=== PATIENT | female | born 1935 | race Caucasian/White ===

== ENCOUNTER 2017-06-30 12:01 | Emergency (ER) | END 2017-06-30 14:11 | disposition home or self-care (01) ==

== ENCOUNTER 2018-11-27 14:47 | Inpatient (IN) | payer OTHER ==
[~2018-11-27] VITALS: Ht 157.5 cm; Wt 69.6 kg
[~2018-11-27 14:47] MED LIST: ALEN70TA5 PO; AMLO-147 PO; AMLO1CAP12 PO; ASPI-1044 PO; ATEN50TA PO; ATOR-2 PO; ATOR40TA68 PO; CALC1TAB98 PO; CHOL200056 PO; FURO40TA4 PO; GABA100C14 PO; GLIP-160 PO; LISI1TAB6 PO; METF-849 PO; TRAM50TA2 PO
--- NOTE | 2018-11-27 16:36 | ERD ---
ER Documentation Chief Complaint Chief Complaint ALOC since 11 am with speech difficulties HPI Patient history of 3 strokes. At 11:30 AM patient had some difficulty speaking. Correct words but definitely getting the words out. Was brought to [facility] department for concern for stroke. Prior to this no head trauma no infectious symptoms was at baseline. No permanent disability secondary to prior strokes. Has been compliant with medications. At this time patient feels better than at 1130 but still having trouble speaking. ROS All systems reviewed and are negative except as per history of present illness. Medications Home Meds Reported Medications Amlodipine Besylate/Benazepril (Amlodipine-Benazepril 10-20 mg) 1 Each Capsule, 1 EACH PO DAILY, CAP 11/27/18 Cholecalciferol (Vitamin D3) (Vitamin D-3) 2,000 Unit Tablet, 2000 UNIT PO DAILY, TAB 11/27/18 Alendronate Sodium* (Fosamax*) 70 Mg Tablet, 70 MG PO Q7D, #4 TAB 11/27/18 Calcium Carbonate/Vitamin D3 (Calcium 600 + Vit D 200 Tablet) 1 Each Tablet, 1 EACH PO DAILY, TAB 11/27/18 Atenolol* (Atenolol*) 50 Mg Tablet, 50 MG PO DAILY, #30 TAB 11/27/18 Gabapentin* (Gabapentin*) 100 Mg Capsule, 100 MG PO BID, #90 CAP 11/27/18 Furosemide* (Furosemide*) 40 Mg Tablet, 40 MG PO BID, TAB 11/27/18 Atorvastatin* (Atorvastatin*) 40 Mg Tablet, 40 MG PO QHS, #30 TAB 11/27/18 Discontinued Reported Medications Gabapentin* (Gabapentin*) 100 Mg Capsule, 100 MG PO TID, #90 CAP 06/30/17 Amlodipine Besylate* (Amlodipine Besylate*) 10 Mg Tablet, 10 MG PO DAILY, #30 TAB 06/30/17 Metformin* (Glucophage*) 500 Mg Tab, 500 MG PO WITH MEALS, #90 TAB 06/30/17 Atenolol* (Atenolol*) 50 Mg Tablet, 50 MG PO DAILY, #30 TAB 06/30/17 Glipizide XL* (Glipizide XL*) 5 Mg Tabsr, 5 MG PO DAILY, TAB 06/30/17 Lisinopril/Hydrochlorothiazide (Lisinopril-Hctz 20-12.5 mg Tab) 1 Each Tablet, 1 EACH PO DAILY, TAB 06/30/17 Atorvastatin* (Atorvastatin*) 40 Mg Tablet, 40 MG PO QHS, #30 TAB 06/30/17 Discontinued Scripts Tramadol HCl (Tramadol HCl) 50 Mg Tablet, 50 MG PO Q6 PRN for PAIN, #20 TAB Prov:JULEE GARCIA MD 06/30/17 Allergies Allergies: Coded Allergies: No Known Allergy (Unverified , 11/27/18) PMhx/Soc History of Surgery: No Anesthesia Reaction: No Hx Neurological Disorder: Yes (CVA X3 ) Hx Respiratory Disorders: No Hx Cardiac Disorders: Yes (HTN) Hx Psychiatric Problems: No Hx Miscellaneous Medical Probl: No Hx Alcohol Use: No Hx Substance Use: No Hx Tobacco Use: No Smoking Status: Never smoker Physical Exam Vitals Vital Signs Date Temp Pulse Resp B/P (MAP) Pulse Ox O2 O2 Flow FiO2 Time Delivery Rate 11/27/18 Nasal 2 15:39 Cannula 11/27/18 98.2 82 18 135/63 93 15:11 (87) Physical Exam Const: No acute distress Head: Atraumatic Eyes: Normal Conjunctiva ENT: Normal External Ears, Nose and Mouth. Neck: Full range of motion. No meningismus. Resp: Clear to auscultation bilaterally Cardio: Regular rate and rhythm, no murmurs Abd: Soft, non tender, non distended. Normal bowel sounds Skin: No petechiae or rashes Back: No midline or flank tenderness Ext: No cyanosis, or edema Neur: Neuro Exam Mental status: oriented, alert, lucid, cooperative, appropriate Cranial nerves: CN 2-12 intact Motor: 5+ UE and LE, flexors and extensors symmetric Sensation: grossly intact to find touch UE and LE symmetrically Cerebellar: normal FTN bilaterally. No tremor noted Gait: normal gait Tone: normal bulk and tone in upper and lower extremities. No atrophy noted. Psych: Normal Mood and Affect Result Diagram: 11/27/18 1450 11/27/18 1450 Results 24 hrs Laboratory Tests Test 11/27/18 14:50 11/27/18 15:02 White Blood Count 9.6 10^3/ul Red Blood Count 4.81 10^6/ul Hemoglobin 10.5 g/dl Hematocrit 35.9 % Mean Corpuscular Volume 74.6 fl Mean Corpuscular Hemoglobin 21.8 pg Mean Corpuscular Hemoglobin Concent 29.2 g/dl Red Cell Distribution Width 17.2 % Platelet Count 261 10^3/UL Mean Platelet Volume 10.5 fl Immature Granulocytes % 0.400 % Neutrophils % 67.9 % Lymphocytes % 21.2 % Monocytes % 8.3 % Eosinophils % 1.7 % Basophils % 0.5 % Nucleated Red Blood Cells % 0.0 /100WBC Immature Granulocytes # 0.040 10^3/ul Neutrophils # 6.5 10^3/ul Lymphocytes # 2.0 10^3/ul Monocytes # 0.8 10^3/ul Eosinophils # 0.2 10^3/ul Basophils # 0.1 10^3/ul Nucleated Red Blood Cells # 0.0 10^3/ul Prothrombin Time 12.3 Sec Prothrombin Time Ratio 1.0 INR International Normalized Ratio 0.90 Activated Partial Thromboplast Time 33.1 Sec Sodium Level 142 mmol/L Potassium Level 3.7 mmol/L Chloride Level 106 mmol/L Carbon Dioxide Level 29 mmol/L Anion Gap 7 Blood Urea Nitrogen 13 mg/dl Creatinine 0.77 mg/dl Est Glomerular Filtrat Rate mL/min mL/min Glucose Level 173 mg/dl Hemoglobin A1c 7.1 % Calcium Level 9.3 mg/dl Creatine Kinase 198 IU/L Creatine Kinase Index 0.5 Creatinine Kinase MB (Mass) 1.02 ng/ml Troponin I < 0.012 ng/ml Triglycerides Level 150 mg/dl Cholesterol Level 142 mg/dl LDL Cholesterol, Calculated 65 mg/dl HDL Cholesterol 47 mg/dl Cholesterol/HDL Ratio 3.0 RATIO Ethyl Alcohol Level < 10.0 mg/dl Bedside Glucose 156 mg/dL Procedures/MDM Patient was brought in for a aphasia code stroke was activated CT brain was negative vitals were unremarkable. Neurologist evaluated through tele-stroke patient is not a candidate for TPA. Aspirin and Plavix will be given and patient will be admitted. Low suspicion for infection, ACS at this time. Patient is awake alert oriented. JULEE LIEBERMAN MD Nov 27, 2018 16:36
[2018-11-27] MEDS ORDERED: ACETAMINOPHEN 325 MG TAB PO PRN ×2 (17:00→17:30)
[2018-11-27] MEDS ORDERED: CLOPIDOGREL 75 MG TAB PO ONE (17:00)
[2018-11-27] MEDS ORDERED: ONDANSETRON 4 MG INJ IV PRN ×2 (17:00→17:30)
[2018-11-27] MEDS ORDERED: ASPIRIN 325 MG TAB PO ONE (17:00)
--- NOTE | 2018-11-27 17:03 | STROKE ---
Date/Time of Note Date/Time of Note DATE: 11/27/18 TIME: 17:01 Patient Information General Patient location: emergency Arrival Date Age 83 Gender female Weight 71.2 kg POC Glucose Glucose Result Bedside Glucose - 72 Hours Test 11/27/18 15:02 Bedside Glucose 156 mg/dL (70-220) Vital Signs Vital Signs Vital Signs Date Temp Pulse Resp B/P (MAP) Pulse Ox O2 O2 Flow FiO2 Time Delivery Rate 11/27/18 Nasal 2 15:39 Cannula 11/27/18 98.2 82 18 135/63 93 15:11 (87) Patient History Current Medications Allergies: Coded Allergies: No Known Allergy (Unverified , 11/27/18) Labs Coagulation Labs: Coagulation Test 11/27/18 14:50 Activated Partial Thromboplast Time 33.1 Sec (23.0-35.0) History & Physical History of Present Illness 83 M PMH DM, stroke without residual deficits LKW 1130 PST with difficulty speaking. NCHCT negative for acute pathology. NIH Stroke Scale NIH Stroke Scale [id number] te aphasia [id number] Total Score: [id number] Date/Time Recorded DATE: 11/27/18 TIME: 16:37 Submitted By Ken Johansen t-PA Imaging Review Date/Time Imaging Reviewed DATE: 11/27/18 TIME: 17:01 t-PA Administration Recommendation: No Weight 71.2 kg Recommedation submitted by Ken Johansen Reason t-PA not Recommended Not in time window Recommendations Recommendation 83 F with occasional word finding difficulty concerning for aphasia concerning for stroke. Not in tPA window. Not evidence-based mechanical thrombectomy candidate due to low NIHSS of 1 - Admission for initial stroke studies: MRI Brain, MRA Head/Neck, TTE with bubble, blood cultures, telemetry, EKG, LDL, A1c, SP, PT, OT. Further testing per these initial results/evaluations. - Perform bedside swallow testing in ED and load with ASA 325 mg PO and Plavix 600 mg PO if passes and not already on these agents at home. Would continue ASA at 81 mg PO QD and Plavix at 75 mg PO QD starting tomorrow. Duration of dual- antiplatelet therapy per local Neurology team, but maximum benefit is seen in first 7 days per POINT trial in patients without intracranial atherosclerotic disease - q 1 hr neuro checks over next 24 hrs - Strict euvolemia, normonatremia, normothermia, normoglycemia - Permissive SBP to 185 for first 24 hours during stroke work-up - Please consult local Neurologist to guide further recs I, Dr Ken Johansen, was consulted by the local team caring for this patient to perform an expert, remote TeleNeurology assessment as a merchandising consultant only. Accuracy of the Electronic Medical Record info reported to me verbally by the local clinical team, adherence to and execution of my recommendations, order placement, follow-up of STAT imaging reports with on-call local Radiologist, and renotification of [facility] Emergency TeleNeurology on-call if clinical deterioration of the patient is the responsibility of the local team. The local physician team is responsible for the further care of this patient in coordination with their on-call local Neurologist. Recommendations documented here were directly communicated to the local physician team. KEN JOHANSEN MD Nov 27, 2018 17:03
[2018-11-27] MEDS ORDERED: NACL 0.9% 3 ML SYG IV SCH (17:30)
--- NOTE | 2018-11-27 18:01 | HP ---
Date/Time of Note Date/Time of Note DATE: 11/27/18 TIME: 17:43 Assessment/Plan VTE Prophylaxis SCD applied (from Nsg): Yes Pharmacological prophylaxis: NA/contraindicated Pharm contraindication: low risk/ambulating Lines/Catheters IV Catheter Type (from Nrsg): Saline Lock Assessment/Plan Assessment/Plan 83 yo woman with history of multiple strokes presents with word finding difficulty. #Aphasia - The patient does have considerable word-finding difficulty on my exam consistent with a left temporal lesion. According to the this is new. - Also with some difficulty following multi step commands. - Code stroke protocol: MRI brain and MRA head+neck, TTE, lipid panel, HgbA1C, EKG. - q1h neuro checks have been recommended by tele-neurology - I will consult Dr. Armenta also - Continue home statin #HTN - Continue home antihypertensives. DVT: SCDs GI: None Result Diagram: 11/27/18 1450 11/27/18 1450 HPI/ROS Admit Date/Time Admit Date/Time 27 November 2018 Hx of Present Illness Ms. Miramontes is an 83 yo Japanese-speaking woman with history of stroke who presents with sudden onset word-finding difficulty. She has had three strokes in the past, most recent was 4 years ago. She has no residual deficits. Around 11:30 this morning she was speaking to her when she suddenly had difficulty finding the right word. The was concerned about stroke and actually reached out to her primary care doctor, who recommended they go to the emergency room. Otherwise the patient does report about a week of productive cough. No other complaints. In the ED she was afebrile, P 82, R 18, BP 135/63. Labs notable for microcytic anemia with Hgb 10.5, otherwise unremarkable. Troponin was negative. Code stroke was called, see note by Dr. Johansen. No TPA ordered. ROS She denies recent fever, chills, night sweats, weight loss, dizziness, vision changes, dysphagia, sore throat, dyspnea, chest pain/pressure/palpitations, nausea, vomiting, abdominal pain, diarrhea, constipation, dysuria, hematuria, urinary frequency. PMH/Family/Social Past Medical History Stroke x3 in the past. Most recently 4 years ago. Medications Current Medications Ondansetron HCl (Zofran Inj) 4 mg ER BRIDGE PRN IV NAUSEA/VOMITING; Start 11/27/18 at 17:00; Stop 11/28/18 at 16:59 Acetaminophen (Tylenol Tab) 650 mg ER BRIDGE PRN PO .MILD PAIN 1-3 OR TEMP; Sta rt 11/27/18 at 17:00; Stop 11/28/18 at 16:59 IV Flush (NS 3 ml) 3 ml PER PROTOCOL IV ; Start 11/27/18 at 17:30; Status UNV Ondansetron HCl (Zofran Inj) 4 mg Q6H PRN IV NAUSEA/VOMITING; Start 11/27/18 at 17:30; Status UNV Acetaminophen (Tylenol Tab) 650 mg Q6H PRN PO .PAIN 1-3 OR TEMP; Start 11/27/18 at 17:30; Status UNV Coded Allergies: No Known Allergy (Unverified , 11/27/18) Past Surgical History Past Surgical Hx: no surgical history Social History Lives at home with Alcohol Use: none Smoking Status: Never smoker Drug Use: none Exam/Review of Systems Vital Signs Vitals Vital Signs Date Temp Pulse Resp B/P (MAP) Pulse Ox O2 O2 Flow FiO2 Time Delivery Rate 11/27/18 76 16 168/76 98 Nasal 2.0 17:04 (106) Cannula 11/27/18 98.2 15:11 Exam Exam Gen: Well appearing woman sitting up in gurney in no distress. NEURO: CN2-12 grossly intact with EOMI, PERRL, no facial droop, symmetrical smile. Also with 5/5 strength upper and lower extremity flexors and extensors; sensation to light touch in tact throughout. She does still have word finding difficulty. Can easily answer "yes" and "no" but struggles with words like "semana", and appears frustrated when she is unable to express herself. Also has difficulty with multi-step commands. Eyes: PERRL, no icterus HEENT: Moist mucous membranes, clear oropharynx Neck: Supple, no lymphadenopathy Card; Regular rate and rhythm, no murmurs Pulm: Clear to auscultation bilaterally. Abd: Soft, nontender, nondistended. No hepatosplenomegaly. Ext: No cyanosis/clubbing/edema. LD JOHANSEN MD Nov 27, 2018 17:55
[2018-11-27 19:33] VITALS: BP 182/72; PULSE 80; RESP 19
[2018-11-27 20:00] VITALS: Ht 157.5 cm; Wt 69.6 kg
[2018-11-27] MEDS: ATORVASTATIN 40 MG TAB PO SCH (20:23)
[2018-11-27] MEDS: GABAPENTIN 100 MG CAP PO SCH (20:23)
[2018-11-27] MEDS: FUROSEMIDE 40 MG TAB PO SCH (20:23)
[2018-11-27] MEDS ORDERED: GLUCOSE GEL 15 GRAM TUBE PO PRN ×2 (20:30)
[2018-11-27] MEDS ORDERED: GLUCAGON 1 MG INJ IM PRN (20:30)
[2018-11-27] MEDS ORDERED: DEXTROSE 50% 50 ML SYRINGE IV PRN ×2 (20:30)
[2018-11-27] MEDS ORDERED: GLUCOSE GEL 15 GRAM TUBE BUCCAL PRN (20:30)
[2018-11-27 22:39] VITALS: BP 131/62; PULSE 77; RESP 18
[2018-11-27] MEDS: INSULIN ASPART [NOVOLOG] 3 ML PEN SC SCH (22:44)
[2018-11-28] VITALS: BP 127/58; PULSE 70; RESP 19
[2018-11-28] MEDS: ACCU-CHEK XX SCH (02:00)
[2018-11-28 04:00] VITALS: BP 144/61; PULSE 54; RESP 19
[2018-11-28] MEDS: INSULIN ASPART [NOVOLOG] 3 ML PEN SC SCH ×4 (07:55→20:17)
[2018-11-28 07:56] VITALS: BP 150/68; PULSE 74; RESP 18
[2018-11-28] MEDS: CHOLECALCIFEROL 2,000 UNIT CAP PO SCH (08:08)
[2018-11-28] MEDS: AMLODIPINE 10 MG TAB PO SCH (08:09)
[2018-11-28] MEDS: BENAZEPRIL 20 MG TAB PO SCH (08:09)
[2018-11-28] MEDS: GABAPENTIN 100 MG CAP PO SCH ×2 (08:09→21:04)
[2018-11-28] MEDS: FUROSEMIDE 40 MG TAB PO SCH ×2 (08:10→21:04)
[2018-11-28] MEDS: ATENOLOL 50 MG TAB PO SCH (08:10)
[2018-11-28] MEDS ORDERED: NON-FORMULARY/PATIENT OWN MED (Amlodipine Besylate/Benazepril (Amlodipine-Benazepril 10-20 PO SCH (09:00)
[2018-11-28] MEDS ORDERED: NON-FORMULARY/PATIENT OWN MED (Cholecalciferol (Vitamin D3) (Vitamin D-3) 2,000 UNIT) PO SCH (09:00)
--- NOTE | 2018-11-28 09:43 | CONSI ---
Assessment/Plan Assessment/Plan Assessment/Plan (Recall) 83 F c/ cerebrovascular risk factors, including reported prior strokes...who presents for evaluation of transient dysphasia.. The clinical picture is most ominously concerning for recurrent stroke. Recrudescence is a Dx of exclusion.. Head CT is unrevealing. UA neg; UDS neg P: Await MRI brain for further characterization Start daily asa for secondary stroke prevention; LDL is at goal.. Glucose and other medical management per primary PT/OT/ST as necessary Will follow clinically to recommend additional neurologic studies as necessary Consultation Date/Type/Reason Admit Date/Time 27 November 2018 Type of Consult Neurology Reason for Consultation dysphasia Requesting Provider: LD TANNER MD Date/Time of Note DATE: 11/28/18 TIME: 09:38 Hx of Present Illness Ms. Miramontes is an 83 yo Swedish-speaking woman with history of stroke who presents with sudden onset word-finding difficulty. She has had three strokes in the past, most recent was 4 years ago. She has no residual deficits. Around 11:30 this morning she was speaking to her when she suddenly had difficulty finding the right word. The was concerned about stroke and actually reached out to her primary care doctor, who recommended they go to the emergency room. Otherwise the patient does report about a week of productive cough. No other complaints. In the ED she was afebrile, P 82, R 18, BP 135/63. Labs notable for microcytic anemia with Hgb 10.5, otherwise unremarkable. Troponin was negative. Code stroke was called, see note by Dr. Tanner. No TPA ordered. per HPI Objective Exam Vitals Vital Signs Date Temp Pulse Resp B/P (MAP) Pulse Ox O2 O2 Flow FiO2 Time Delivery Rate 11/28/18 98.7 74 18 150/68 98 Room Air 07:56 (95) 11/28/18 2.0 27 02:14 Intake and Output 11/27/18 11/27/18 11/28/18 1515:00 23:00 07:00 IntakeIntake Total 100 ml BalanceBalance 100 ml Exam PE: Gen Appearance: No Apparent Distress HEENT: Normocephalic Cardiovascular: Regular rate Lungs: Clear bilaterally Abdomen: Soft Extremities: Dry NE: The patient was alert and oriented. Language was normal. Fund of knowledge was normal. Pupils were equal and reactive to light. There was no afferent pupillary defect. Visual bauer were normal. Funduscopic examination was limited. Extra-ocular movements were full. Ptosis was absent. There was no nystagmus. Facial sensation was normal. Face was symmetric with normal strength. Hearing was intact. Palate movements were normal. Neck strength was normal. There was normal tongue bulk and speed of movement. Tone was normal. Muscle bulk was normal. I did not see fasciculations. Arms and legs were strong. Vibration sensation was normal. Temperature and pinprick sensation was normal. Rapid alternating movements were normal. There was no dysmetria. There was no intention tremor. Gait was deferred due to bedrest. Arm and leg reflexes were symmetric. Navarro's sign was absent. Plantar responses were flexor. Results Result Diagram: 11/28/1861811/28/18618 Results 24hrs Laboratory Tests Test 11/27/18 14:50 11/27/18 15:02 11/27/18 16:58 11/27/18 22:44 White Blood Count 9.6 Red Blood Count 4.81 Hemoglobin 10.5 L Hematocrit 35.9 L Mean Corpuscular 74.6 L Volume Mean Corpuscular 21.8 L Hemoglobin Mean Corpuscular 29.2 L Hemoglobin Concent Red Cell 17.2 H Distribution Width Platelet Count 261 Mean Platelet Volume 10.5 H Immature 0.400 Granulocytes % Neutrophils % 67.9 Lymphocytes % 21.2 Monocytes % 8.3 Eosinophils % 1.7 Basophils % 0.5 Nucleated Red Blood 0.0 Cells % Immature 0.040 H Granulocytes # Neutrophils # 6.5 Lymphocytes # 2.0 Monocytes # 0.8 Eosinophils # 0.2 Basophils # 0.1 Nucleated Red Blood 0.0 Cells # Prothrombin Time 12.3 Prothrombin Time 1.0 Ratio INR International 0.90 Normalized Ratio Activated 33.1 Partial Thromboplast Time Sodium Level 142 Potassium Level 3.7 Chloride Level 106 Carbon Dioxide Level 29 Anion Gap 7 Blood Urea Nitrogen 13 Creatinine 0.77 Est Glomerular Filtrat Rate mL/min Glucose Level 173 Hemoglobin A1c 7.1 H Calcium Level 9.3 Creatine Kinase 198 Creatine Kinase 0.5 Index Creatinine Kinase MB 1.02 (Mass) Troponin I < 0.012 Triglycerides Level 150 H Cholesterol Level 142 LDL Cholesterol, 65 Calculated HDL Cholesterol 47 Cholesterol/HDL 3.0 Ratio Ethyl Alcohol Level < 10.0 H Bedside Glucose 156 141 Urine Color YELLOW Urine Clarity CLEAR Urine pH 7.0 Urine Specific 1.012 Leroy Urine Ketones NEGATIVE Urine Nitrite NEGATIVE Urine Bilirubin NEGATIVE Urine Urobilinogen NEGATIVE Urine Leukocyte TRACE A Esterase Urine Microscopic 1 RBC Urine Microscopic 3 WBC Urine Hemoglobin NEGATIVE Urine Glucose NEGATIVE Urine Total Protein NEGATIVE Urine Opiates Screen Negative Urine Barbiturates Negative Urine Amphetamines Negative Screen Urine Negative Benzodiazepines Screen Urine Cocaine Screen Negative Urine Cannabinoids Negative Test 11/28/18 06:19 11/28/18 08:07 White Blood Count 7.9 Red Blood Count 4.83 Hemoglobin 10.6 L Hematocrit 36.0 L Mean Corpuscular 74.5 L Volume Mean Corpuscular 21.9 L Hemoglobin Mean Corpuscular 29.4 L Hemoglobin Concent Red Cell 17.2 H Distribution Width Platelet Count 252 Mean Platelet Volume 10.5 H Immature 0.400 Granulocytes % Neutrophils % 61.6 Lymphocytes % 24.5 Monocytes % 10.9 Eosinophils % 2.0 Basophils % 0.6 Nucleated Red Blood 0.0 Cells % Immature 0.030 Granulocytes # Neutrophils # 4.9 Lymphocytes # 1.9 Monocytes # 0.9 Eosinophils # 0.2 Basophils # 0.1 Nucleated Red Blood 0.0 Cells # Sodium Level 145 H Potassium Level 3.6 Chloride Level 104 Carbon Dioxide Level 32 H Anion Gap 9 Blood Urea Nitrogen 12 Creatinine 0.87 Est Glomerular Filtrat Rate mL/min Glucose Level 124 # Hemoglobin A1c 7.1 H Calcium Level 9.0 Phosphorus Level 4.0 Magnesium Level 1.6 L Iron Level 34 L Total Iron Binding 350 Capacity Percent Iron 10 L Saturation Ferritin 6.8 L Total Bilirubin 0.9 Direct Bilirubin 0.00 Indirect Bilirubin 0.9 Aspartate Amino 24 Transf (AST/SGOT) Alanine 12 L Aminotransferase (AL T/SGPT) Alkaline Phosphatase 80 Total Protein 6.9 Albumin 3.8 Globulin 3.10 Albumin/Globulin 1.22 Ratio Thyroid Stimulating 1.280 Hormone (TSH) Bedside Glucose 131 Past Medical History reviewed Home Meds Reported Medications Amlodipine Besylate/Benazepril (Amlodipine-Benazepril 10-20 mg) 1 Each Capsule, 1 EACH PO DAILY, CAP 11/27/18 Cholecalciferol (Vitamin D3) (Vitamin D-3) 2,000 Unit Tablet, 2000 UNIT PO DAILY, TAB 11/27/18 Alendronate Sodium* (Fosamax*) 70 Mg Tablet, 70 MG PO Q7D, #4 TAB 11/27/18 Calcium Carbonate/Vitamin D3 (Calcium 600 + Vit D 200 Tablet) 1 Each Tablet, 1 EACH PO DAILY, TAB 11/27/18 Atenolol* (Atenolol*) 50 Mg Tablet, 50 MG PO DAILY, #30 TAB 11/27/18 Gabapentin* (Gabapentin*) 100 Mg Capsule, 100 MG PO BID, #90 CAP 11/27/18 Furosemide* (Furosemide*) 40 Mg Tablet, 40 MG PO BID, TAB 11/27/18 Atorvastatin* (Atorvastatin*) 40 Mg Tablet, 40 MG PO QHS, #30 TAB 11/27/18 Discontinued Reported Medications Gabapentin* (Gabapentin*) 100 Mg Capsule, 100 MG PO TID, #90 CAP 06/30/17 Amlodipine Besylate* (Amlodipine Besylate*) 10 Mg Tablet, 10 MG PO DAILY, #30 TAB 06/30/17 Metformin* (Glucophage*) 500 Mg Tab, 500 MG PO WITH MEALS, #90 TAB 06/30/17 Atenolol* (Atenolol*) 50 Mg Tablet, 50 MG PO DAILY, #30 TAB 06/30/17 Glipizide XL* (Glipizide XL*) 5 Mg Tabsr, 5 MG PO DAILY, TAB 06/30/17 Lisinopril/Hydrochlorothiazide (Lisinopril-Hctz 20-12.5 mg Tab) 1 Each Tablet, 1 EACH PO DAILY, TAB 06/30/17 Atorvastatin* (Atorvastatin*) 40 Mg Tablet, 40 MG PO QHS, #30 TAB 06/30/17 Discontinued Scripts Tramadol HCl (Tramadol HCl) 50 Mg Tablet, 50 MG PO Q6 PRN for PAIN, #20 TAB Prov:JULEE GARCIA MD 06/30/17 Medications Current Medications IV Flush (NS 3 ml) 3 ml PER PROTOCOL IV ; Start 11/27/18 at 17:30 Ondansetron HCl (Zofran Inj) 4 mg Q6H PRN IV NAUSEA/VOMITING; Start 11/27/18 at 17:30 Acetaminophen (Tylenol Tab) 650 mg Q6H PRN PO .PAIN 1-3 OR TEMP; Start 11/27/18 at 17:30 Atenolol (Tenormin) 50 mg DAILY PO Last administered on 11/28/18at 08:10; Admin Dose 50 MG; Start 11/28/18 at 09:00 Atorvastatin Calcium (Lipitor) 40 mg QHS PO Last administered on 11/27/18at 20:23; Admin Dose 40 MG; Start 11/27/18 at 21:00 Furosemide (Lasix) 40 mg BID PO Last administered on 11/28/18at 08:10; Admin Dose 40 MG; Start 11/27/18 at 21:00 Gabapentin (Neurontin) 100 mg BID PO Last administered on 11/28/18at 08:09; Admin Dose 100 MG; Start 11/27/18 at 21:00 Cholecalciferol (Vitamin D) 2,000 unit DAILY PO Last administered on 11/28/18 08:08; Admin Dose 2,000 UNIT; Start 11/28/18 at 09:00 Diagnostic Test (Pha) (Accu-Chek) 1 ea 02 XX ; Start 11/28/18 at 02:00 Insulin Aspart (Novolog Insulin Pen) NOVOLOG *MILD* ALGORITHM WITH MEALS BEDTIME SC ; Start 11/27/18 at 21:00 Miscellaneous Information 1 ea NOTE XX ; Start 11/27/18 at 20:30 Glucose (Glutose) 15 gm Q15M PRN PO DECREASED GLUCOSE; Start 11/27/18 at 20:30 Glucose (Glutose) 22.5 gm Q15M PRN PO DECREASED GLUCOSE; Start 11/27/18 at 20:30 Dextrose (D50w Syringe) 25 ml Q15M PRN IV DECREASED GLUCOSE; Start 11/27/18 at 20:30 Dextrose (D50w Syringe) 50 ml Q15M PRN IV DECREASED GLUCOSE; Start 11/27/18 at 20:30 Glucagon (Glucagen) 1 mg Q15M PRN IM DECREASED GLUCOSE; Start 11/27/18 at 20:30 Glucose (Glutose) 15 gm Q15M PRN BUCCAL DECREASED GLUCOSE; Start 11/27/18 at 20:30 Amlodipine Besylate (Norvasc) 10 mg DAILY PO Last administered on 11/28/18at 08:09; Admin Dose 10 MG; Start 11/28/18 at 09:00 Benazepril HCl (Lotensin) 20 mg DAILY PO Last administered on 11/28/18at 08:09; Admin Dose 20 MG; Start 11/28/18 at 09:00 Allergies: Coded Allergies: No Known Allergy (Unverified , 11/27/18) Past Surgical History Past Surgical Hx: no surgical history Social History Alcohol Use: none Smoking Status: Never smoker Drug Use: none JW FIERRO Nov 28, 2018 09:43
[2018-11-28] MEDS: ASPIRIN (EC) 81 MG TAB PO SCH (10:52)
[2018-11-28 11:55] VITALS: BP 138/63; PULSE 65; RESP 20
--- NOTE | 2018-11-28 12:54 | PN ---
Date/Time of Note Date/Time of Note DATE: 11/28/18 TIME: 12:53 Assessment/Plan VTE Prophylaxis Risk score (from Ns)>0 risk: 4 [place] [facility] [place] Pharmacological prophylaxis: NA/contraindicated Pharm contraindication: other Lines/Catheters IV Catheter Type (from [facility]): Saline Lock Assessment/Plan Hospital Course 83 yo woman with history of multiple strokes presents with word finding difficulty. #Aphasia - The patient does have considerable word-finding difficulty on my exam consistent with a left temporal lesion. According to the this is new. - Also with some difficulty following multi step commands. - Code stroke protocol: MRI brain and MRA head+neck, TTE, lipid panel, HgbA1C, EKG. - q1h neuro checks have been recommended by tele-neurology -Neurology consultation appreciated - Continue home statin #HTN - Continue home antihypertensives. DVT: SCDs DC planning: Follow-up on MRI results Result Diagram: 11/28/1861811/28/18618 Results 24hrs Laboratory Tests Test 11/27/18 14:50 11/27/18 15:02 11/27/18 16:58 11/27/18 22:44 White Blood Count 9.6 Red Blood Count 4.81 Hemoglobin 10.5 L Hematocrit 35.9 L Mean Corpuscular 74.6 L Volume Mean Corpuscular 21.8 L Hemoglobin Mean Corpuscular 29.2 L Hemoglobin Concent Red Cell 17.2 H Distribution Width Platelet Count 261 Mean Platelet Volume 10.5 H Immature 0.400 Granulocytes % Neutrophils % 67.9 Lymphocytes % 21.2 Monocytes % 8.3 Eosinophils % 1.7 Basophils % 0.5 Nucleated Red Blood 0.0 Cells % Immature 0.040 H Granulocytes # Neutrophils # 6.5 Lymphocytes # 2.0 Monocytes # 0.8 Eosinophils # 0.2 Basophils # 0.1 Nucleated Red Blood 0.0 Cells # Prothrombin Time 12.3 Prothrombin Time 1.0 Ratio INR International 0.90 Normalized Ratio Activated 33.1 Partial Thromboplast Time Sodium Level 142 Potassium Level 3.7 Chloride Level 106 Carbon Dioxide Level 29 Anion Gap 7 Blood Urea Nitrogen 13 Creatinine 0.77 Est Glomerular Filtrat Rate mL/min Glucose Level 173 Hemoglobin A1c 7.1 H Calcium Level 9.3 Creatine Kinase 198 Creatine Kinase 0.5 Index Creatinine Kinase MB 1.02 (Mass) Troponin I < 0.012 Triglycerides Level 150 H Cholesterol Level 142 LDL Cholesterol, 65 Calculated HDL Cholesterol 47 Cholesterol/HDL 3.0 Ratio Ethyl Alcohol Level < 10.0 H Bedside Glucose 156 141 Urine Color YELLOW Urine Clarity CLEAR Urine pH 7.0 Urine Specific 1.012 Mclean Urine Ketones NEGATIVE Urine Nitrite NEGATIVE Urine Bilirubin NEGATIVE Urine Urobilinogen NEGATIVE Urine Leukocyte TRACE A Esterase Urine Microscopic 1 RBC Urine Microscopic 3 WBC Urine Hemoglobin NEGATIVE Urine Glucose NEGATIVE Urine Total Protein NEGATIVE Urine Opiates Screen Negative Urine Barbiturates Negative Urine Amphetamines Negative Screen Urine Negative Benzodiazepines Screen Urine Cocaine Screen Negative Urine Cannabinoids Negative Test 11/28/18 06:19 11/28/18 08:07 11/28/18 11:54 White Blood Count 7.9 Red Blood Count 4.83 Hemoglobin 10.6 L Hematocrit 36.0 L Mean Corpuscular 74.5 L Volume Mean Corpuscular 21.9 L Hemoglobin Mean Corpuscular 29.4 L Hemoglobin Concent Red Cell 17.2 H Distribution Width Platelet Count 252 Mean Platelet Volume 10.5 H Immature 0.400 Granulocytes % Neutrophils % 61.6 Lymphocytes % 24.5 Monocytes % 10.9 Eosinophils % 2.0 Basophils % 0.6 Nucleated Red Blood 0.0 Cells % Immature 0.030 Granulocytes # Neutrophils # 4.9 Lymphocytes # 1.9 Monocytes # 0.9 Eosinophils # 0.2 Basophils # 0.1 Nucleated Red Blood 0.0 Cells # Sodium Level 145 H Potassium Level 3.6 Chloride Level 104 Carbon Dioxide Level 32 H Anion Gap 9 Blood Urea Nitrogen 12 Creatinine 0.87 Est Glomerular Filtrat Rate mL/min Glucose Level 124 # Hemoglobin A1c 7.1 H Calcium Level 9.0 Phosphorus Level 4.0 Magnesium Level 1.6 L Iron Level 34 L Total Iron Binding 350 Capacity Percent Iron 10 L Saturation Ferritin 6.8 L Total Bilirubin 0.9 Direct Bilirubin 0.00 Indirect Bilirubin 0.9 Aspartate Amino 24 Transf (AST/SGOT) Alanine 12 L Aminotransferase (AL T/SGPT) Alkaline Phosphatase 80 Total Protein 6.9 Albumin 3.8 Globulin 3.10 Albumin/Globulin 1.22 Ratio Thyroid Stimulating 1.280 Hormone (TSH) Bedside Glucose 131 150 Subjective 24 Hr Interval Summary Constitutional: disoriented Exam/Review of Systems Exam Vitals Vital Signs Date Temp Pulse Resp B/P (MAP) Pulse Ox O2 O2 Flow FiO2 Time Delivery Rate 11/28/18 97.9 65 20 138/63 96 Room Air 11:55 (88) 11/28/18 2.0 27 02:14 Intake and Output 11/27/18 11/27/18 11/28/18 1515:00 23:00 07:00 IntakeIntake Total 100 ml BalanceBalance 100 ml Psych: confusion Respiratory: clear to auscultation Cardiovascular: regular rate and rhythm Gastrointestinal: soft Musculoskeletal: nl extremities to inspection Results Results 24hrs Laboratory Tests Test 11/27/18 14:50 11/27/18 15:02 11/27/18 16:58 11/27/18 22:44 White Blood Count 9.6 Red Blood Count 4.81 Hemoglobin 10.5 L Hematocrit 35.9 L Mean Corpuscular 74.6 L Volume Mean Corpuscular 21.8 L Hemoglobin Mean Corpuscular 29.2 L Hemoglobin Concent Red Cell 17.2 H Distribution Width Platelet Count 261 Mean Platelet Volume 10.5 H Immature 0.400 Granulocytes % Neutrophils % 67.9 Lymphocytes % 21.2 Monocytes % 8.3 Eosinophils % 1.7 Basophils % 0.5 Nucleated Red Blood 0.0 Cells % Immature 0.040 H Granulocytes # Neutrophils # 6.5 Lymphocytes # 2.0 Monocytes # 0.8 Eosinophils # 0.2 Basophils # 0.1 Nucleated Red Blood 0.0 Cells # Prothrombin Time 12.3 Prothrombin Time 1.0 Ratio INR International 0.90 Normalized Ratio Activated 33.1 Partial Thromboplast Time Sodium Level 142 Potassium Level 3.7 Chloride Level 106 Carbon Dioxide Level 29 Anion Gap 7 Blood Urea Nitrogen 13 Creatinine 0.77 Est Glomerular Filtrat Rate mL/min Glucose Level 173 Hemoglobin A1c 7.1 H Calcium Level 9.3 Creatine Kinase 198 Creatine Kinase 0.5 Index Creatinine Kinase MB 1.02 (Mass) Troponin I < 0.012 Triglycerides Level 150 H Cholesterol Level 142 LDL Cholesterol, 65 Calculated HDL Cholesterol 47 Cholesterol/HDL 3.0 Ratio Ethyl Alcohol Level < 10.0 H Bedside Glucose 156 141 Urine Color YELLOW Urine Clarity CLEAR Urine pH 7.0 Urine Specific 1.012 Mclean Urine Ketones NEGATIVE Urine Nitrite NEGATIVE Urine Bilirubin NEGATIVE Urine Urobilinogen NEGATIVE Urine Leukocyte TRACE A Esterase Urine Microscopic 1 RBC Urine Microscopic 3 WBC Urine Hemoglobin NEGATIVE Urine Glucose NEGATIVE Urine Total Protein NEGATIVE Urine Opiates Screen Negative Urine Barbiturates Negative Urine Amphetamines Negative Screen Urine Negative Benzodiazepines Screen Urine Cocaine Screen Negative Urine Cannabinoids Negative Test 11/28/18 06:19 11/28/18 08:07 11/28/18 11:54 White Blood Count 7.9 Red Blood Count 4.83 Hemoglobin 10.6 L Hematocrit 36.0 L Mean Corpuscular 74.5 L Volume Mean Corpuscular 21.9 L Hemoglobin Mean Corpuscular 29.4 L Hemoglobin Concent Red Cell 17.2 H Distribution Width Platelet Count 252 Mean Platelet Volume 10.5 H Immature 0.400 Granulocytes % Neutrophils % 61.6 Lymphocytes % 24.5 Monocytes % 10.9 Eosinophils % 2.0 Basophils % 0.6 Nucleated Red Blood 0.0 Cells % Immature 0.030 Granulocytes # Neutrophils # 4.9 Lymphocytes # 1.9 Monocytes # 0.9 Eosinophils # 0.2 Basophils # 0.1 Nucleated Red Blood 0.0 Cells # Sodium Level 145 H Potassium Level 3.6 Chloride Level 104 Carbon Dioxide Level 32 H Anion Gap 9 Blood Urea Nitrogen 12 Creatinine 0.87 Est Glomerular Filtrat Rate mL/min Glucose Level 124 # Hemoglobin A1c 7.1 H Calcium Level 9.0 Phosphorus Level 4.0 Magnesium Level 1.6 L Iron Level 34 L Total Iron Binding 350 Capacity Percent Iron 10 L Saturation Ferritin 6.8 L Total Bilirubin 0.9 Direct Bilirubin 0.00 Indirect Bilirubin 0.9 Aspartate Amino 24 Transf (AST/SGOT) Alanine 12 L Aminotransferase (AL T/SGPT) Alkaline Phosphatase 80 Total Protein 6.9 Albumin 3.8 Globulin 3.10 Albumin/Globulin 1.22 Ratio Thyroid Stimulating 1.280 Hormone (TSH) Bedside Glucose 131 150 Medications Medication Current Medications IV Flush (NS 3 ml) 3 ml PER PROTOCOL IV ; Start 11/27/18 at 17:30 Ondansetron HCl (Zofran Inj) 4 mg Q6H PRN IV NAUSEA/VOMITING; Start 11/27/18 at 17:30 Acetaminophen (Tylenol Tab) 650 mg Q6H PRN PO .PAIN 1-3 OR TEMP Last administered on 11/28/18at 10:54; Admin Dose 650 MG; Start 11/27/18 at 17:30 Atenolol (Tenormin) 50 mg DAILY PO Last administered on 11/28/18at 08:10; Admin Dose 50 MG; Start 11/28/18 at 09:00 Atorvastatin Calcium (Lipitor) 40 mg QHS PO Last administered on 11/27/18at 20:23; Admin Dose 40 MG; Start 11/27/18 at 21:00 Furosemide (Lasix) 40 mg BID PO Last administered on 11/28/18at 08:10; Admin Dose 40 MG; Start 11/27/18 at 21:00 Gabapentin (Neurontin) 100 mg BID PO Last administered on 11/28/18 08:09; Admin Dose 100 MG; Start 11/27/18 at 21:00 Cholecalciferol (Vitamin D) 2,000 unit DAILY PO Last administered on 11/28/18at 08:08; Admin Dose 2,000 UNIT; Start 11/28/18 at 09:00 Diagnostic Test (Pha) (Accu-Chek) 1 ea 02 XX ; Start 11/28/18 at 02:00 Insulin Aspart (Novolog Insulin Pen) NOVOLOG *MILD* ALGORITHM WITH MEALS BEDTIME SC Last administered on 11/28/18at 12:15; Admin Dose 1 UNIT; Start 11/27/18 at 21:00 Miscellaneous Information 1 ea NOTE XX ; Start 11/27/18 at 20:30 Glucose (Glutose) 15 gm Q15M PRN PO DECREASED GLUCOSE; Start 11/27/18 at 20:30 Glucose (Glutose) 22.5 gm Q15M PRN PO DECREASED GLUCOSE; Start 11/27/18 at 20:30 Dextrose (D50w Syringe) 25 ml Q15M PRN IV DECREASED GLUCOSE; Start 11/27/18 at 20:30 Dextrose (D50w Syringe) 50 ml Q15M PRN IV DECREASED GLUCOSE; Start 11/27/18 at 20:30 Glucagon (Glucagen) 1 mg Q15M PRN IM DECREASED GLUCOSE; Start 11/27/18 at 20:30 Glucose (Glutose) 15 gm Q15M PRN BUCCAL DECREASED GLUCOSE; Start 11/27/18 at 20:30 Amlodipine Besylate (Norvasc) 10 mg DAILY PO Last administered on 11/28/18at 08:09; Admin Dose 10 MG; Start 11/28/18 at 09:00 Benazepril HCl (Lotensin) 20 mg DAILY PO Last administered on 11/28/18at 08:09; Admin Dose 20 MG; Start 11/28/18 at 09:00 Aspirin (Halfprin) 81 mg DAILY PO Last administered on 11/28/18at 10:52; Admin Dose 81 MG; Start 11/28/18 at 10:00 SEGUNDO VALENCIA Nov 28, 2018 12:54
[2018-11-28] MEDS ORDERED: MAGNESIUM SULFATE 2 GM/50 ML 50 ML IVPB ONE (13:00)
[2018-11-28 15:53] VITALS: BP 129/60; PULSE 90; RESP 19
--- NOTE | 2018-11-28 17:07 | RADRPT ---
Echocardiogram Report Patient Name: CALLIE HORTONPatient ID: [id number] : 1935 (83y 2m)Study Date: 11/28/2018 8:57:32 AM Gender: FAccession #: [id number] [place]: [facility] [place] Location: [facility] Ref.Physician: LD JOHANSEN Height(Cm): 160 BSA: 1.77Weight(Kg): 70.8 Quality: AdequateOrder Physician: LD JOHANSEN Account #: Procedures: Echocardiographic Report: Transthoracic echocardiogram with complete 2D, M-Mode, and doppler examination. Indications: Cerebrovascular Accident. Measurements: 2D/M Mode Doppler Measurement Value Normal Range Measurement Value Normal Range LVIDd 2D 4.6 [ 3.8 - 5.2 ] cm AV Peak Paul 1.2 [ 100.0 - 170.0 ] cm/se c LVIDs 2D 3.4 [ 2.2 - 3.5 ] cm AV Peak PG 6.0 [ 2.0 - 9.0 ] mmHg LVPWd 2D 1.3 [ 0.6 - 0.9 ] cm LVOT Peak Paul 0.8 [ 70.0 - 110.0 ] cm/sec IVSd 2D 1.3 [ 0.6 - 0.9 ] cm LVOT Peak PG 3.0 [ 2.0 - 6.0 ] mmHg AoR Diam 2D 3.3 [ 2.3 - 3.1 ] cm MV E Peak Paul 0.6 [ 60.0 - 130.0 ] cm/sec EDV 2D 96.8 [ 46.0 - 106.0 ] ml MV A Peak Paul 1.0 [ 100.0 - 120.0 ] cm/se c ESV 2D 47.8 [ 14.0 - 42.0 ] ml MV E/A 0.7 [ 0.8 - 1.5 ] ratio EF 2D 50.6 [ 54.0 - 74.0 ] percent MV PHT 70.0 [ 20.0 - 100.0 ] msec LA Dimen 2D 3.2 [ 2.7 - 3.8 ] cm MV Decel Time 240 [ 104 - 258 ] msec MV Decel [place] 3 Lat E` Paul 0.1 [ 10.0 - 15.0 ] cm/sec Lateral E/E` 7.7 [ 1.0 - 2.0 ] ratio Med E` Paul 0.0 cm/sec MV E/A 0.7 [ 0.8 - 1.5 ] ratio MVA PHT 3.1 [ 2.0 - 4.0 ] cm2 TR Peak Paul 3.0 [ 100.0 - 280.0 ] cm/se c TR Peak PG 36.0 mmHg PV Peak Paul 0.8 [ 40.0 - 80.0 ] cm/sec PV Peak PG 3.0 mmHg RVSP 39.0 [ 10.0 - 36.0 ] mmHg RA Pressure 3.0 mmHg Findings: Left Ventricle: Lower limits of normal systolic function. Normal left ventricular cavity size. Mild concentric left ventricular hypertrophy. Mild left ventricular systolic dysfunction. Ejection fraction is visually estimated at 45-50 %. Tissue Doppler/Mitral Doppler indices are consistent with impaired relaxation (Stage I diastolic dysfunction). E/E'= 15. Right Ventricle: Normal right ventricular size. Normal right ventricular systolic function. Left Atrium: The left atrium is normal in size. Right Atrium: The right atrium is normal in size. Atrial Septum: Normal atrial septum. Mitral Valve: Normal appearance and function of the mitral valve with trace physiologic regurgitation. Aortic Valve: Normal appearance of the aortic valve. No hemodynamically significant aortic stenosis by doppler. Trace to mild aortic valve regurgitation. Tricuspid Valve: Normal appearance of the tricuspid valve. The estimated Peak RVSP is 39 mmHg. There is mild tricuspid regurgitation. Pulmonic Valve: Normal pulmonic valve appearance. There is trace pulmonic regurgitation. Pericardium: Normal pericardium with no significant pericardial effusion. Aorta: Sinus of valsalva is mildly dilated. IVC: Normal size and normal respiratory collapse consistent with normal right atrial pressure. Pulmonary Artery: Normal pulmonary artery size. Conclusions: Lower limits of normal systolic function. Normal left ventricular cavity size. Mild concentric left ventricular hypertrophy. Mild left ventricular systolic dysfunction. Ejection fraction is visually estimated at 45-50 %. Tissue Doppler/Mitral Doppler indices are consistent with impaired relaxation (Stage I diastolic dysfunction). E/E'= 15. Normal appearance and function of the mitral valve with trace physiologic regurgitation. Normal appearance of the aortic valve. No hemodynamically significant aortic stenosis by doppler. Trace to mild aortic valve regurgitation. Normal appearance of the tricuspid valve. The estimated Peak RVSP is 39 mmHg. There is mild tricuspid regurgitation. Normal pulmonic valve appearance. There is trace pulmonic regurgitation. n. Electronically Signed By: Ld Reyes 2018-11-28 17:07:44 PDT
[2018-11-28 20:00] VITALS: BP 144/64; PULSE 64; PULSE 65; RESP 18
[2018-11-28] MEDS: ATORVASTATIN 40 MG TAB PO SCH (21:03)
[2018-11-29] VITALS: BP 143/63; PULSE 62; PULSE 66; RESP 19
[2018-11-29] MEDS: ACCU-CHEK XX SCH (02:00)
[2018-11-29 04:00] VITALS: BP 140/62; PULSE 52; PULSE 63; RESP 18
[2018-11-29 07:30] VITALS: BP 159/59; PULSE 55; RESP 20
[2018-11-29] MEDS: GABAPENTIN 100 MG CAP PO SCH (08:04)
[2018-11-29] MEDS: CHOLECALCIFEROL 2,000 UNIT CAP PO SCH (08:04)
[2018-11-29] MEDS: BENAZEPRIL 20 MG TAB PO SCH (08:05)
[2018-11-29] MEDS: AMLODIPINE 10 MG TAB PO SCH (08:05)
[2018-11-29] MEDS: FUROSEMIDE 40 MG TAB PO SCH (08:06)
[2018-11-29] MEDS: ASPIRIN (EC) 81 MG TAB PO SCH (08:12)
[2018-11-29] MEDS: ATENOLOL 50 MG TAB PO SCH (08:39)
[2018-11-29] MEDS: INSULIN ASPART [NOVOLOG] 3 ML PEN SC SCH ×2 (08:39→11:50)
[2018-11-29 11:59] VITALS: BP 134/61; PULSE 63; RESP 20
--- NOTE | 2018-11-29 14:39 | PDOCDIS ---
Discharge Instructions CONDITION [id number] Patient Condition: [id number] Good HOME CARE INSTRUCTIONS: [id number] Diet Instructions: [id number] Modified Fat ACTIVITY: [id number] Activity Restrictions: [id number] No Restrictions FOLLOW UP/APPOINTMENTS Follow-up Plan FOLLOW UP WITH YOUR PRIMARY CARE PHYSICIAN IN 1-2 WEEKS SEGUNDO VALENCIA Nov 29, 2018 14:39
[2018-11-29 15:30] VITALS: BP 136/63; PULSE 66; RESP 20
--- NOTE | 2018-11-30 16:37 | DS ---
Date/Time of Note Date/Time of Note DATE: 11/30/18 TIME: 16:34 Discharge Summary Admission/Discharge Info Admit Date/Time Nov 27, 2018 at 16:55 Discharge Date/Time Nov 29, 2018 at 16:19 Discharge Diagnosis 83 yo woman with history of multiple strokes presents with word finding difficulty. #Aphasia - The patient does have considerable word-finding difficulty on my exam consistent with a left temporal lesion. According to the this is new. - Also with some difficulty following multi step commands. - Code stroke protocol: -MRI brain did show acute infarct involving the left parietal lobe, posterior insulin temporal lobe as well as old infarcts -MRI with no significant findings -DC with aspirin and increased dose of statin -Neurology consultation appreciated -Home health for PT and ST #HTN - Continue home antihypertensives. Patient Condition: Good Hospital Course Patient is a 83 yo woman with history of multiple strokes presents with word finding difficulty. MRI did show areas of acute/recent infarcts involving left parietal lobe, posterior insula and temporal lobe. MRI showed no significant findings, patient was seen by neurology. Patient was seen by PT and was stable for DC to home with home health, on the day of discharge patient's vitals, labs and physical exam are stable. Patient was discharged with aspirin and increased dose of statin. Home Meds Active Scripts Aspirin Delayed Release (Aspirin Delayed Release) 81 Mg Tablet., 81 MG PO [place], #90 TAB Prov:SEGUNDO VALENCIA 11/29/18 Atorvastatin* (Atorvastatin*) 80 Mg Tablet, 80 MG PO QHS, #60 TAB Prov:SEGUNDO VALENCIA 11/29/18 Reported Medications Amlodipine Besylate/Benazepril (Amlodipine-Benazepril 10-20 mg) 1 Each Capsule, 1 EACH PO DAILY, CAP 11/27/18 Cholecalciferol (Vitamin D3) (Vitamin D-3) 2,000 Unit Tablet, 2000 UNIT PO DAILY, TAB 11/27/18 Alendronate Sodium* (Fosamax*) 70 Mg Tablet, 70 MG PO Q7D, #4 TAB 11/27/18 Calcium Carbonate/Vitamin D3 (Calcium 600 + Vit D 200 Tablet) 1 Each Tablet, 1 EACH PO DAILY, TAB 11/27/18 Atenolol* (Atenolol*) 50 Mg Tablet, 50 MG PO DAILY, #30 TAB 11/27/18 Gabapentin* (Gabapentin*) 100 Mg Capsule, 100 MG PO BID, #90 CAP 11/27/18 Furosemide* (Furosemide*) 40 Mg Tablet, 40 MG PO BID, TAB 11/27/18 Discontinued Reported Medications Atorvastatin* (Atorvastatin*) 40 Mg Tablet, 40 MG PO QHS, #30 TAB 11/27/18 Gabapentin* (Gabapentin*) 100 Mg Capsule, 100 MG PO TID, #90 CAP 06/30/17 Amlodipine Besylate* (Amlodipine Besylate*) 10 Mg Tablet, 10 MG PO DAILY, #30 TAB 06/30/17 Metformin* (Glucophage*) 500 Mg Tab, 500 MG PO WITH MEALS, #90 TAB 06/30/17 Atenolol* (Atenolol*) 50 Mg Tablet, 50 MG PO DAILY, #30 TAB 06/30/17 Glipizide XL* (Glipizide XL*) 5 Mg Tabsr, 5 MG PO DAILY, TAB 06/30/17 Lisinopril/Hydrochlorothiazide (Lisinopril-Hctz 20-12.5 mg Tab) 1 Each Tablet, 1 EACH PO DAILY, TAB 06/30/17 Atorvastatin* (Atorvastatin*) 40 Mg Tablet, 40 MG PO QHS, #30 TAB 06/30/17 Discontinued Scripts Tramadol HCl (Tramadol HCl) 50 Mg Tablet, 50 MG PO Q6 PRN for PAIN, #20 TAB Prov:JULEE GARCIA MD 06/30/17 Follow-up Plan FOLLOW UP WITH YOUR PRIMARY CARE PHYSICIAN IN 1-2 WEEKS Primary Care Provider Not On Staff Doctor Time spent on discharge: > 30 minutes SEGUNDO VALENCIA Nov 30, 2018 16:37
== END 2018-11-29 16:19 | disposition home health service (06) | DRG 93 ==
LOC: E/R 14:47 → TEL 16:55
PROVIDERS: ADMIT Internal Medicine; ATTEND Internal Medicine
DX: R47.01 Aphasia (principal); I10 Essential (primary) hypertension; Z86.73 Personal history of transient ischemic attack (TIA), and cerebral infarction without residual deficits
CPT/HCPCS: 36415; 70450; 70546; 70549; 70553; 71045; 80048; 80053; 80061; 80307; 81001; 82550; 82553; 82728; 82962; 83036; 83540; 83735; 84100; 84443; 84484; 85025; 85610; 85730; 92610; 93005; 93306; 97162; J1815; J3475